=== PATIENT | female | born 2000 | race Caucasian/White ===

== ENCOUNTER 2018-11-07 21:26 | Inpatient (IN) ==
[2018-11-07] MEDS ORDERED: BUTORPHANOL 2 MG/ML VIAL IV PRN (23:59)
[2018-11-07] MEDS ORDERED: ONDANSETRON 4 MG/2 ML VIAL IV PRN (23:59)
[2018-11-07] MEDS ORDERED: MEPERIDINE 50 MG/1 ML VIAL IV PRN (23:59)
[2018-11-08] MEDS: LACTATED RINGERS 1,000 ML IV SCH ×2 (00:30→09:31)
[2018-11-08 00:45] LABS: Basophils % 0.1 % (0.0-0.8); Eosinophils # 0.1 10*3/uL (0.0-0.87); Eosinophils % 0.9 % (0.00-10.9); Hematocrit 36.7 VOL% (35.7-47.0); Hemoglobin 11.6 GM/DL (12.0-16.0); Immature Granulocytes % 0.6 %; Immature Granulocytes Absolute 0.07 #; Lymphocytes # 1.7 10*3/uL (1.4-4.0); Lymphocytes % 15.4 % (21.3-54.2); Mean Corpuscular HGB Conc 31.6 GM/DL (32-36); Mean Corpuscular Hemoglobin 26 PG (27-34); Mean Corpuscular Volume 83.6 FL (87-102); Mean Platelet Volume 10.6 FL (9.6-12.0); Monocytes % 8.4 % (1.7-12.7); Neutrophils # 8.4 10*3/uL (1.4-7.4); Neutrophils % 74.6 % (38.7-73.9); Platelet Count 192 T/CUMM (130-400); Red Blood Count 4.39 MC/CUMM (3.8-5.5); Red Cell Distribution Width 15.1 % (9.3-17.3); White Blood Count 11.3 T/CUMM (4-12)
[2018-11-08 01:11] LABS: Albumin 2.9 G/DL (3.4-5.0); Bilirubin,Total 1.1 MG/DL (0.2-1.0); Calcium 8.5 MG/DL (8.5-10.1); Osmolality,Calculated 274.4 MOS/KG (273-304); Potassium 3.6 MMOL/L (3.5-5.1); Total Protein 6.3 G/DL (6.4-8.3)
[2018-11-08] MEDS ORDERED: FAMOTIDINE 20 MG/2 ML VIAL IV ONE (07:43)
[2018-11-08] MEDS ORDERED: PROMETHAZINE 25 MG/1 ML VIAL IM ONE (07:43)
[2018-11-08] MEDS ORDERED: ePHEDrine 50 MG/ML AMP IV PRN (07:43)
[2018-11-08] MEDS ORDERED: CITRIC ACID/SODIUM CITRATE 30 ML UDCUP PO ONE (07:43)
[2018-11-08] MEDS ORDERED: diphenhydrAMINE 50 MG/1 ML VIAL IV PRN ×2 (07:43)
[2018-11-08] MEDS ORDERED: hydrOXYzine HCL 25 MG/1 ML VIAL IM PRN (07:43)
[2018-11-08] MEDS ORDERED: NALOXONE 0.4 MG/ML VIAL IV PRN (07:43)
[2018-11-08] MEDS ORDERED: ONDANSETRON 4 MG/2 ML VIAL IV ONE (07:43)
[2018-11-08] MEDS: fentaNYL 2 MCG/ROPIV 0.2% EPID 100 ML EPIDURAL SCH (08:19)
[2018-11-08] MEDS ORDERED: TERBUTALINE 1 MG/1 ML VIAL SUBCUT ONE ×2 (09:20→09:21)
[2018-11-08 10:20] LABS: Apearance,Urine CLEAR (Clear); Bilirubin,Urine Negative (Negative); Blood, Urine Small mg/dL (Negative); Glucose,Urine (UA) Negative (Negative); Ketones,Urine 80 mg/dL (Negative); Mucus,Urine Moderate /LPF (Occasional); Nitrite,Urine Negative (Negative); Protein,Urine Negative; RBC,Urine 17 /HPF (0-4); Squamous Epithelial Cell,Urine Occasional /HPF (0-10); Urine Color Yellow (Yellow); Urine Specific Gravity 1.018 (1.001-1.035); WBC,Urine <1 /HPF (0-6)
[2018-11-08] MEDS ORDERED: LIDOCAINE 1% 50 ML VIAL ONE (10:58)
[2018-11-08] MEDS ORDERED: miSOPROStol 200 MCG TABLET ONE (10:58)
[2018-11-08] MEDS ORDERED: METHYLERGONOVINE 0.2 MG/1 ML AMP ONE (10:59)
[2018-11-08] MEDS ORDERED: OXYTOCIN/LR 20 UNIT/1,000 ML BAG IV ONE ×2 (10:59→13:14)
[2018-11-08] MEDS ORDERED: CARBOPROST TROMETHAMINE 250 MCG/ML AMP IM ONE (10:59)
[2018-11-08] MEDS ORDERED: ONDANSETRON 4 MG/2 ML VIAL IV PRN (13:14)
[2018-11-08] MEDS ORDERED: BENZOCAINE 20%/MENTHOL 0.5% SPRAY 56 GM CAN TOP PRN (13:14)
[2018-11-08] MEDS ORDERED: LANOLIN 50% CREAM 0.3 OZ TUBE TOP PRN (13:14)
[2018-11-08] MEDS ORDERED: HYDROCORTISONE 2.5% RECTAL CREAM 30 GM TUBE TOP PRN (13:14)
[2018-11-08] MEDS ORDERED: BISACODYL 10 MG SUPP RECTAL PRN (13:14)
[2018-11-08] MEDS ORDERED: ACETAMINOPHEN 325 MG TABLET PO PRN (13:14)
[2018-11-08] MEDS ORDERED: MEASLES/MUMPS/RUBELLA VACCINE 0.5 ML VIAL SUBCUT ONE (13:14)
[2018-11-08] MEDS ORDERED: RHO(D) IMMUNE GLOBULIN 300 MCG SYRINGE IM ONE (13:14)
[2018-11-08] MEDS ORDERED: oxyCODONE/ACETAMINOPHEN 5-325 MG TABLET PO PRN ×2 (13:14)
[2018-11-08] MEDS ORDERED: WITCH HAZEL PADS 100/JAR TOP PRN (13:14)
[2018-11-08] MEDS ORDERED: DIPH/TET/ACEL PERT BOOSTER VACCINE 0.5 ML VIAL IM ONE (13:14)
[2018-11-08 13:23] LABS: Cord Arterial Blood HCO3 22.2 MMOL/L
[2018-11-08 13:26] LABS: Cord Venous Blood HCO3 21.6 MMOL/L; Cord Venous Blood PCO2 48.3 MMHG
[2018-11-08] MEDS: IBUPROFEN 800 MG TABLET PO PRN (16:30)
[2018-11-08] MEDS: DOCUSATE SODIUM 100 MG CAPSULE PO SCH (21:11)
[2018-11-09 06:01] LABS: Basophils % 0.1 % (0.0-0.8); Eosinophils % 0.3 % (0.00-10.9); Hemoglobin 10.5 GM/DL (12.0-16.0); Immature Granulocytes % 0.6 %; Immature Granulocytes Absolute 0.09 #; Lymphocytes # 1.4 10*3/uL (1.4-4.0); Lymphocytes % 9.2 % (21.3-54.2); Mean Corpuscular HGB Conc 30.9 GM/DL (32-36); Mean Corpuscular Hemoglobin 26 PG (27-34); Mean Corpuscular Volume 85.2 FL (87-102); Mean Platelet Volume 10.9 FL (9.6-12.0); Monocytes # 1.2 10*3/uL (0.11-0.8); Monocytes % 7.9 % (1.7-12.7); Neutrophils # 12.2 10*3/uL (1.4-7.4); Neutrophils % 81.9 % (38.7-73.9); Platelet Count 177 T/CUMM (130-400); Red Blood Count 3.99 MC/CUMM (3.8-5.5); Red Cell Distribution Width 15.3 % (9.3-17.3)
[2018-11-09] MEDS: fentaNYL 2 MCG/ROPIV 0.2% EPID 100 ML EPIDURAL SCH ×2 (07:32→07:33)
[2018-11-09] MEDS: LACTATED RINGERS 1,000 ML IV SCH ×2 (07:33→07:34)
[2018-11-09] MEDS: IBUPROFEN 800 MG TABLET PO PRN (08:32)
[2018-11-09] MEDS: DOCUSATE SODIUM 100 MG CAPSULE PO SCH ×2 (08:32→22:08)
[2018-11-10 07:33] VITALS: BP 110/64
[2018-11-10] MEDS: DOCUSATE SODIUM 100 MG CAPSULE PO SCH (08:25)
== END 2018-11-10 11:30 | disposition home or self-care (01) | DRG 807 ==
LOC: N.LDOUT 21:26 → N.LD 21:27 → N.OB 11-08 16:19
PROVIDERS: ADMIT Specialist; ATTEND Specialist

== ENCOUNTER 2020-02-16 03:35 | Inpatient (IN) ==
[2020-02-16] MEDS: LACTATED RINGERS 1,000 ML IV SCH ×4 (04:30→18:07)
[2020-02-16] MEDS ORDERED: LACTATED RINGERS 500 ML IV PRN (04:31)
[2020-02-16] MEDS ORDERED: ONDANSETRON 4 MG/2 ML VIAL IV PRN ×2 (04:31→08:24)
[2020-02-16 05:01] LABS: Basophils % 0.3 % (0.0-0.8); Eosinophils # 0.1 10*3/uL (0.0-0.87); Eosinophils % 1.5 % (0.00-10.9); Hematocrit 35.2 VOL% (35.7-47.0); Hemoglobin 11.1 GM/DL (12.0-16.0); Immature Granulocytes % 0.5 %; Immature Granulocytes Absolute 0.05 #; Lymphocytes # 1.9 10*3/uL (1.4-4.0); Lymphocytes % 20.6 % (21.3-54.2); Mean Corpuscular HGB Conc 31.5 GM/DL (32-36); Mean Corpuscular Volume 81.3 FL (87-102); Mean Platelet Volume 10.7 FL (9.6-12.0); Monocytes % 8.9 % (1.7-12.7); Neutrophils % 68.2 % (38.7-73.9); Platelet Count 202 T/CUMM (130-400); Red Blood Count 4.33 MC/CUMM (3.8-5.5); Red Cell Distribution Width 13.8 % (9.3-17.3); White Blood Count 9.3 T/CUMM (4-12)
[2020-02-16] MEDS ORDERED: FAMOTIDINE 20 MG/2 ML VIAL IV ONE (05:20)
[2020-02-16] MEDS ORDERED: CITRIC ACID/SODIUM CITRATE 30 ML UDCUP PO ONE (05:20)
[2020-02-16] MEDS ORDERED: OXYTOCIN/LR 20 UNIT/1,000 ML BAG IV ONE ×2 (05:21→08:24)
[2020-02-16] MEDS ORDERED: ceFAZolin 2,000 MG in PREMIX 1 EACH IV ONE (05:22)
[2020-02-16 05:54] LABS: Alanine Aminotransferase 15 U/L (13-56); Albumin 2.8 G/DL (3.4-5.0); Alkaline Phosphatase 146 U/L (45-117); Aspartate Amino Transferase 13 U/L (0-37); Bilirubin,Total < 0.39 MG/DL (0.2-1.0); Blood Urea Nitrogen 6 MG/DL (7-18); Calcium 8.9 MG/DL (8.5-10.1); Estimated Glom Filtration Rate 146 ML/MIN; Glucose 73 MG/DL (74-106); Osmolality,Calculated 266.1 MOS/KG (273-304); Total Protein 6.6 G/DL (6.4-8.3)
[2020-02-16] MEDS ORDERED: MORPHINE 10 MG/10 ML VIAL ONE (06:46)
[2020-02-16] MEDS ORDERED: ROPIVACAINE 0.5% 30 ML VIAL ONE (06:46)
[2020-02-16] MEDS ORDERED: BUPIVACAINE SPINAL 0.75% 2 ML AMP SPINAL ONE (06:47)
[2020-02-16] MEDS ORDERED: LACTATED RINGERS 1,000 ML IV SCH (07:00)
[2020-02-16] MEDS ORDERED: METHYLERGONOVINE 0.2 MG/1 ML AMP ONE (07:11)
[2020-02-16] MEDS ORDERED: miSOPROStoL 200 MCG TABLET ONE (07:11)
[2020-02-16] MEDS ORDERED: CARBOPROST TROMETHAMINE 250 MCG/ML AMP IM ONE (07:12)
[2020-02-16] MEDS ORDERED: PHENYLEPHRINE 1 MG/10 ML SYRINGE IV ONE (07:18)
[2020-02-16] MEDS ORDERED: MEASLES/MUMPS/RUBELLA VACCINE 0.5 ML VIAL SUBCUT ONE (08:24)
[2020-02-16] MEDS ORDERED: BISACODYL 10 MG SUPP RECTAL PRN (08:24)
[2020-02-16] MEDS ORDERED: LANOLIN 50% CREAM 0.3 OZ TUBE TOP PRN (08:24)
[2020-02-16] MEDS ORDERED: RHO(D) IMMUNE GLOBULIN 300 MCG SYRINGE IM ONE (08:24)
[2020-02-16] MEDS ORDERED: DIPH/TET/ACEL PERT BOOSTER VACCINE 0.5 ML VIAL IM ONE (08:24)
[2020-02-16] MEDS ORDERED: ACETAMINOPHEN 325 MG TABLET PO PRN (08:24)
[2020-02-16] MEDS ORDERED: oxyCODONE/ACETAMINOPHEN 5-325 MG TABLET PO PRN ×2 (08:24)
[2020-02-16] MEDS ORDERED: IBUPROFEN 800 MG TABLET PO PRN (08:24)
[2020-02-16] MEDS ORDERED: WITCH HAZEL PADS 100/JAR TOP PRN (08:24)
[2020-02-16] MEDS ORDERED: HYDROCORTISONE 2.5% RECTAL CREAM 30 GM TUBE TOP PRN (08:24)
[2020-02-16] MEDS ORDERED: BENZOCAINE 20%/MENTHOL 0.5% SPRAY 56 GM CAN TOP PRN (08:24)
[2020-02-16 09:21] LABS: Apearance,Urine CLEAR (Clear); Bilirubin,Urine Negative (Negative); Blood, Urine Negative (Negative); Glucose,Urine (UA) Negative (Negative); Ketones,Urine Negative (Negative); Nitrite,Urine Negative (Negative); Protein,Urine Negative; RBC,Urine <1 /HPF (0-4); Urine Color Straw (Yellow); Urine Specific Gravity 1.008 (1.001-1.035); Urine Urobilinogen < 2.0 EU/DL (0.2-1.0); WBC,Urine <1 /HPF (0-6)
[2020-02-16] MEDS: KETOROLAC 30 MG/1 ML VIAL IV SCH ×3 (09:28→21:19)
[2020-02-16] MEDS: ACETAMINOPHEN 500 MG TABLET PO SCH ×3 (09:28→21:19)
[2020-02-16] MEDS ORDERED: MIDAZOLAM 2 MG/2 ML VIAL ONE (10:20)
[2020-02-16] MEDS ORDERED: fentaNYL 100 MCG/2 ML VIAL ONE (10:20)
[2020-02-16] MEDS ORDERED: propofoL 200 MG/20 ML VIAL IV ONE (10:21)
[2020-02-16] MEDS: DOCUSATE SODIUM 100 MG CAPSULE PO SCH ×2 (16:33→20:16)
[2020-02-16] MEDS: ceFAZolin 1,000 MG in SYRINGE 1 EACH IV SCH (16:37)
[2020-02-17] MEDS: ceFAZolin 1,000 MG in SYRINGE 1 EACH IV SCH (00:55)
[2020-02-17] MEDS: KETOROLAC 30 MG/1 ML VIAL IV SCH (03:37)
[2020-02-17] MEDS: ACETAMINOPHEN 500 MG TABLET PO SCH (03:38)
[2020-02-17 06:32] LABS: Basophils % 0.2 % (0.0-0.8); Eosinophils # 0.1 10*3/uL (0.0-0.87); Eosinophils % 1.2 % (0.00-10.9); Hematocrit 29.5 VOL% (35.7-47.0); Immature Granulocytes % 0.6 %; Immature Granulocytes Absolute 0.07 #; Lymphocytes # 1.8 10*3/uL (1.4-4.0); Lymphocytes % 15.7 % (21.3-54.2); Mean Corpuscular HGB Conc 30.5 GM/DL (32-36); Mean Corpuscular Volume 83.3 FL (87-102); Mean Platelet Volume 10.8 FL (9.6-12.0); Monocytes % 8.7 % (1.7-12.7); Neutrophils % 73.6 % (38.7-73.9); Platelet Count 160 T/CUMM (130-400); Red Blood Count 3.54 MC/CUMM (3.8-5.5); Red Cell Distribution Width 14.1 % (9.3-17.3); White Blood Count 11.3 T/CUMM (4-12)
[2020-02-17] MEDS: DOCUSATE SODIUM 100 MG CAPSULE PO SCH ×2 (09:08→22:17)
[2020-02-17] MEDS: MAGNESIUM HYDROXIDE SUSP 30 ML UDCUP PO PRN (10:29)
[2020-02-18 08:02] VITALS: BP 105/48
[2020-02-18] MEDS: MAGNESIUM HYDROXIDE SUSP 30 ML UDCUP PO PRN (09:00)
[2020-02-18] MEDS: DOCUSATE SODIUM 100 MG CAPSULE PO SCH (09:00)
== END 2020-02-18 12:30 | disposition home or self-care (01) | DRG 788 ==
LOC: N.LD 03:35 → N.OB 11:03
PROVIDERS: ADMIT Specialist; ATTEND Specialist
PROC: LDCSECT (ICD-10-PCS; 2020-02-16 07:45)